=== PATIENT | male | born 1930 | race Caucasian/White ===

== ENCOUNTER 2017-07-22 09:17 | Inpatient (IN) | payer MEDICARE, OTHER ==
[~2017-07-22] VITALS: Ht 182.9 cm; Wt 81.0 kg
[2017-07-22] MEDS ORDERED: SODIUM CHLORIDE FLUSH 10ML SYR IVF ONE (10:00)
[2017-07-22 10:14] LABS: HEMATOCRIT 44.4 % (39.2-51.8); HEMOGLOBIN 15.1 g/dL (13.7-18.0); WHITE BLOOD COUNT 7.7 x10^3/uL (3.4-10)
[2017-07-22 10:28] LABS: BLOOD UREA NITROGEN 24 mg/dL (7-18)
[2017-07-22 10:40] LABS: IS PT STATUS REG ER OR PRE ER? YES
[2017-07-22] MEDS ORDERED: ACETAMINOPHEN 325 MG TABLET PO PRN (13:30)
[2017-07-22] MEDS ORDERED: ENALAPRILAT 1.25 MG/ML, 2ML IVPush PRN (13:30)
[2017-07-22 13:54] VITALS: BP 149/82
[2017-07-22 14:15] LABS: IS PT STATUS REG ER OR PRE ER? NO
[2017-07-22] MEDS ORDERED: LORA1TAB PO (16:23)
[2017-07-22] MEDS ORDERED: APIX5TAB PO (16:23)
[2017-07-22] MEDS ORDERED: PRAV20TA2 PO (16:23)
[2017-07-22] MEDS ORDERED: ASPI-496 PO (16:23)
[2017-07-22] MEDS ORDERED: FURO-92 PO (16:23)
[2017-07-22] MEDS ORDERED: RANO500T2 PO (16:23)
[2017-07-22] MEDS ORDERED: OMEP-110 PO (16:23)
[2017-07-22] MEDS ORDERED: ATEN25TA PO (16:23)
[2017-07-22] MEDS ORDERED: TELM40TA PO (16:23)
[2017-07-22] MEDS ORDERED: FUROSEMIDE 20 MG/2 ML IVPush ONE (17:00)
[2017-07-22 19:50] VITALS: BP 153/78
[2017-07-22 20:31] LABS: IS PT STATUS REG ER OR PRE ER? NO
[2017-07-22] MEDS: PRAVASTATIN 20 MG TABLET PO SCH (21:40)
[2017-07-22] MEDS: APIXABAN 5 MG TABLET PO SCH (21:41)
[2017-07-22] MEDS: LORazepam 1MG TABLET PO SCH (21:41)
[2017-07-22] MEDS: RANOLAZINE 500 MG TAB.ER.12H PO SCH (21:41)
[2017-07-23 00:44] VITALS: BP 144/89
[2017-07-23 06:14] LABS: HEMATOCRIT 41.1 % (39.2-51.8); HEMOGLOBIN 13.8 g/dL (13.7-18.0); WHITE BLOOD COUNT 9.2 x10^3/uL (3.4-10)
[2017-07-23 07:13] LABS: BLOOD UREA NITROGEN 25 mg/dL (7-18)
[2017-07-23 07:17] VITALS: BP 134/90
[2017-07-23] MEDS: RANOLAZINE 500 MG TAB.ER.12H PO SCH ×2 (08:49→20:16)
[2017-07-23] MEDS: ATENOLOL 25 MG TABLET PO SCH (08:49)
[2017-07-23] MEDS: OMEPRAZOLE 20 MG CAPSULE.DR PO SCH (08:50)
[2017-07-23] MEDS: APIXABAN 5 MG TABLET PO SCH ×2 (08:50→20:17)
[2017-07-23] MEDS: ASPIRIN 81 MG TABLET EC PO SCH (08:50)
[2017-07-23] MEDS: LOSARTAN 50MG TABLET PO SCH (08:50)
[2017-07-23] MEDS ORDERED: FUROSEMIDE 40 MG TABLET PO SCH (09:00)
[2017-07-23 15:09] VITALS: BP 113/70
[2017-07-23 19:05] VITALS: BP 144/86
[2017-07-23] MEDS: LORazepam 1MG TABLET PO SCH (20:16)
[2017-07-23] MEDS: PRAVASTATIN 20 MG TABLET PO SCH (20:17)
[2017-07-24 00:48] VITALS: BP 138/83
[2017-07-24 06:36] VITALS: BP 134/82
[2017-07-24] MEDS: APIXABAN 5 MG TABLET PO SCH (09:04)
[2017-07-24] MEDS: ATENOLOL 25 MG TABLET PO SCH (09:05)
[2017-07-24] MEDS: RANOLAZINE 500 MG TAB.ER.12H PO SCH (09:05)
[2017-07-24] MEDS: LOSARTAN 50MG TABLET PO SCH (09:05)
[2017-07-24] MEDS: OMEPRAZOLE 20 MG CAPSULE.DR PO SCH (09:05)
[2017-07-24] MEDS: ASPIRIN 81 MG TABLET EC PO SCH (09:05)
== END 2017-07-24 12:56 | disposition home or self-care (01) | DRG 291 ==
LOC: ED 11:22 → UNDOADMIN 11:47 → EDIP 11:47 → ORIP 11:47 → INTOOBSV 11:47 → 5SO 13:31 → OBSVTOIN 07-23 15:00
PROVIDERS: ADMIT Internal Medicine; ATTEND Family Medicine
DX: I50.31 Acute diastolic (congestive) heart failure (principal); J96.91 Respiratory failure, unspecified with hypoxia; D68.69 Other thrombophilia; I48.92 Unspecified atrial flutter; I45.81 Long QT syndrome; I48.2 Chronic atrial fibrillation; I35.8 Other nonrheumatic aortic valve disorders; G89.29 Other chronic pain; D75.89 Other specified diseases of blood and blood-forming organs; I16.0 Hypertensive urgency; I25.10 Atherosclerotic heart disease of native coronary artery without angina pectoris; K21.9 Gastro-esophageal reflux disease without esophagitis; Z66 Do not resuscitate; Z79.01 Long term (current) use of anticoagulants; I25.2 Old myocardial infarction; Z95.5 Presence of coronary angioplasty implant and graft
CPT/HCPCS: 36415; 71010; 71020; 80048; 80061; 82040; 82607; 82746; 83735; 83880; 84443; 84484; 85025; 85610; 93005; 93306; 96374; G0378; J1940

== ENCOUNTER 2018-10-24 09:48 | Emergency (ER) | payer MEDICARE, OTHER ==
[~2018-10-24] VITALS: Ht 182.9 cm; Wt 86.7 kg
[~2018-10-24 09:48] MED LIST: APIX5TAB PO; ASPI-496 PO; ATEN25TA PO; FURO-92 PO; LORA1TAB PO; OMEP-110 PO; PRAV20TA2 PO; RANO500T2 PO; TELM40TA PO
[2018-10-24 10:24] LABS: BASOPHILS # (AUTO) 0.02 x10^3/uL (0-0.1); BASOPHILS % (AUTO) 0 % (0-1); EOSINOPHILS # (AUTO) 0.08 x10^3/uL (0-0.4); EOSINOPHILS % (AUTO) 1 % (1-7); LYMPHOCYTES # (AUTO) 1.63 x10^3/uL (1-3.4); LYMPHOCYTES % (AUTO) 19 % (22-44); MD NO; MEAN CORPUSCULAR HEMOGLOBIN 33.5 pg (27.5-34.5); MEAN CORPUSCULAR HGB CONC 33.8 g/dL (33.2-36.2); MEAN CORPUSCULAR VOLUME 99.2 fL (81-97); MEAN PLATELET VOLUME 8.5 fL (7.4-10.4); MONOCYTES # (AUTO) 0.56 x10^3/uL (0.2-0.8); MONOCYTES % (AUTO) 7 % (2-9); NEUTROPHILS # (AUTO) 6.29 x10^3/uL (1.8-6.8); NEUTROPHILS % (AUTO) 73 % (42-75); PLATELET COUNT 231 x10^3/uL (130-400); RED BLOOD COUNT 4.73 x10^6/uL (4.38-5.82); RED CELL DISTRIBUTION WIDTH 14.2 % (9.4-14.8)
[2018-10-24 10:34] LABS: ALBUMIN 3.5 g/dL (3.4-5.0); ANION GAP 6 mmol/L (5-15); CALCIUM 9.3 mg/dL (8.5-10.1); CHLORIDE 106 mmol/L (98-107)
[2018-10-24 10:38] LABS: TROPONIN I < 0.015 ng/mL (0.000-0.045)
--- NOTE | 2018-10-24 11:30 | NUR ---
To room at this time. Ambulatory with steady gait.
--- NOTE | 2018-10-24 12:13 | NUR ---
FIRST CONTACT WITH PT. ED MD AT BEDSIDE. FAMILY AT BEDSIDE. NADN. PT STATES, "I WAS HAVING SOME CHEST PAIN TODAY AND NUMBNESS AND TINGLING IN FEET." PT CONNECTED TO ALL MONITORS. NADN. ALL SAFETY MEASURES IN PLACE.
[2018-10-24 12:24] VITALS: BP 167/93
--- NOTE | 2018-10-24 13:16 | NUR ---
Patient given discharge instructions and they have confirmed that they understand the instructions. Patient ambulatory with steady gait. Pt and family left with discharge paperwork and all personal belongings.
== END 2018-10-24 13:18 | disposition home or self-care (01) ==
LOC: ED 12:50
DX: R06.02 Shortness of breath (principal); I11.0 Hypertensive heart disease with heart failure; I50.9 Heart failure, unspecified; I48.91 Unspecified atrial fibrillation; K21.9 Gastro-esophageal reflux disease without esophagitis; I25.10 Atherosclerotic heart disease of native coronary artery without angina pectoris; Z95.5 Presence of coronary angioplasty implant and graft
CPT/HCPCS: 36415; 71045; 80048; 82040; 84484; 85025; 93005; 99284

== ENCOUNTER → 2019-01-04 | Outpatient (CLI) | payer MEDICARE, OTHER | END | disposition home or self-care (01) | LOC: CFH 12:57 | PROVIDERS: ATTEND Internal Medicine Cardiovascular Disease | DX: I08.8 Other rheumatic multiple valve diseases (principal); I25.10 Atherosclerotic heart disease of native coronary artery without angina pectoris; I48.0 Paroxysmal atrial fibrillation; I10 Essential (primary) hypertension; E78.5 Hyperlipidemia, unspecified | CPT/HCPCS: 93306 ==

== ENCOUNTER 2019-05-09 08:26 | Outpatient (CLI) | payer MEDICARE, OTHER ==
[~2019-05-09 08:26] MED LIST changes: +REGADENOSON 0.4 MG/5 ML SYRINGE ONE
[2019-07-11] MEDS ORDERED: CARV6.252 PO (12:34)
[2019-07-11] MEDS ORDERED: TAMS-11 PO (12:36)
[2019-07-11] MEDS ORDERED: FINA5TAB4 PO (12:36)
[2019-07-14] MEDS ORDERED: ACID1TAB7 PO (10:27)
[2019-07-14] MEDS ORDERED: CLOP75TA PO (10:27)
[2019-07-14] MEDS ORDERED: LOSA50TA2 PO ×2 (10:27)
[2019-07-14] MEDS ORDERED: APIX5TAB PO (10:27)
[2019-07-14] MEDS ORDERED: FURO40TA6 PO (10:27)
[2019-07-14] MEDS ORDERED: SPIR25TA PO (10:27)
== END 2019-05-09 23:59 | disposition home or self-care (01) ==
LOC: CFH 08:26
PROVIDERS: ATTEND Internal Medicine Cardiovascular Disease
DX: I48.91 Unspecified atrial fibrillation (principal); I10 Essential (primary) hypertension; I25.10 Atherosclerotic heart disease of native coronary artery without angina pectoris; I48.0 Paroxysmal atrial fibrillation
CPT/HCPCS: 78452; 93017; A9502; J2785

== ENCOUNTER 2019-10-29 12:50 | Emergency (ER) | payer MEDICARE, OTHER ==
[~2019-10-29] VITALS: Ht 182.9 cm; Wt 84.4 kg
[~2019-10-29 12:50] MED LIST changes: +ACID1TAB7 PO; +CARV6.252 PO; +CLOP75TA PO; +FINA5TAB4 PO; +FURO40TA6 PO; +LOSA50TA2 PO; -REGADENOSON 0.4 MG/5 ML SYRINGE ONE; +SPIR25TA PO; +TAMS-11 PO
[2019-10-29 13:02] VITALS: BP 114/87
[2019-10-29] MEDS ORDERED: LIDOCAINE-MPF 1%, 5ML ONE ×2 (13:17→14:21)
[2019-10-29] MEDS ORDERED: LIDOCAINE-MPF 1%, 5ML INFIL ONE (13:30)
[2019-10-29] MEDS ORDERED: CEFAZOLIN 1,000 MG IM ONE (14:00)
[2019-10-29] MEDS ORDERED: NEOSPORIN OINT. PKT 1 PACKET ONE (14:50)
[2019-10-29] MEDS ORDERED: CEFAZOLIN 1,000 MG ONE (15:00)
[2019-10-29] MEDS ORDERED: DIPH,PERTUSS(ACELL),TET VAC/PF 0.5 ML IM-VACC ONE ×2 (15:12→15:30)
== END 2019-10-29 15:23 | disposition home or self-care (01) ==
LOC: ED 15:10
DX: S61.311A Laceration without foreign body of left index finger with damage to nail, initial encounter (principal); I48.91 Unspecified atrial fibrillation; I25.2 Old myocardial infarction; I11.0 Hypertensive heart disease with heart failure; I25.10 Atherosclerotic heart disease of native coronary artery without angina pectoris; Z90.49 Acquired absence of other specified parts of digestive tract; W23.1XXA Caught, crushed, jammed, or pinched between stationary objects, initial encounter; Y93.89 Activity, other specified; Y92.89 Other specified places as the place of occurrence of the external cause; Y99.8 Other external cause status
CPT/HCPCS: 73140; 90471; 90715; 96372; 99283; J0690; 13131; 99285

== ENCOUNTER 2019-10-31 08:32 | Emergency (ER) | payer MEDICARE, OTHER ==
[~2019-10-31] VITALS: Ht 182.9 cm; Wt 84.0 kg
[2019-10-31] MEDS ORDERED: NEOSPORIN OINT. PKT 1 PACKET ONE (09:19)
[2019-10-31 10:08] VITALS: BP 129/74
== END 2019-10-31 10:13 | disposition home or self-care (01) ==
LOC: ED 09:19
DX: M79.645 Pain in left finger(s) (principal); M79.89 Other specified soft tissue disorders; I48.91 Unspecified atrial fibrillation; I11.0 Hypertensive heart disease with heart failure; I50.9 Heart failure, unspecified; I25.10 Atherosclerotic heart disease of native coronary artery without angina pectoris; K21.9 Gastro-esophageal reflux disease without esophagitis; Z90.49 Acquired absence of other specified parts of digestive tract
CPT/HCPCS: 99283